=== PATIENT | female | born 1950 | race Caucasian/White ===

== ENCOUNTER 2017-06-21 16:16 | Emergency (ER) | payer MEDICARE, BC ==
[~2017-06-21] VITALS: Ht 170.2 cm; Wt 100.0 kg
[~2017-06-21 16:16] MED LIST: AMERGE1 MG PO; EFFEXOR 75M75 MG/TAB PO; LEVSIN0.125 M1 PO; NORVASC 5MG5 MG/TAB PO; PRILOSEC 20MG20 MG PO; VYTORIN 10 MG-21 TAB PO; [UNRECOGNIZED DRUG - OTHER]
[2017-06-21 16:18] VITALS: TEMP 97.6
[2017-06-21] MEDS ORDERED: PREDNISONE20 MG PO (17:18)
[2017-06-21 18:00] VITALS: BP 152/91; PULSE 80
== END 2017-06-21 18:00 | disposition home or self-care (01) ==
LOC: COL.ER 16:16
DX: T39.4X5A Adverse effect of antirheumatics, not elsewhere classified, initial encounter (principal); I10 Essential (primary) hypertension
CPT/HCPCS: J2930

== ENCOUNTER → 2017-10-26 | Outpatient (CLI) | payer MEDICARE, BC ==
[~2017-10-26] MED LIST changes: +PREDNISONE20 MG PO
== END ==
LOC: MC.RAD 13:46
DX: Z12.31 Encounter for screening mammogram for malignant neoplasm of breast (principal); Z98.890 Other specified postprocedural states

== ENCOUNTER → 2018-12-12 | Outpatient (CLI) | payer MEDICARE, BC | LOC: MC.RAD 13:16 | DX: N60.32 Fibrosclerosis of left breast (principal); N64.89 Other specified disorders of breast; Z85.3 Personal history of malignant neoplasm of breast; Z98.890 Other specified postprocedural states | CPT/HCPCS: G0279 ==

== ENCOUNTER 2019-05-01 12:47 | Outpatient (CLI) | payer MEDICARE, BC ==
[~2019-05-01] VITALS: Ht 170.2 cm; Wt 76.9 kg
[2019-05-01 13:30] VITALS: BP 148/72; PULSE 66; TEMP 98.4
== END 2019-05-01 14:10 | disposition home or self-care (01) ==
LOC: EUO 12:47
DX: M81.0 Age-related osteoporosis without current pathological fracture (principal)
CPT/HCPCS: J3489

== ENCOUNTER → 2019-07-25 | Outpatient (CLI) | payer MEDICARE, BC | LOC: COL.RAD 13:53 | DX: M79.645 Pain in left finger(s) (principal) | CPT/HCPCS: J3301; Q9967 ==

== ENCOUNTER → 2020-02-12 | Outpatient (CLI) | payer MEDICARE, BC | LOC: MC.RAD 02-04 11:15 | DX: Z12.31 Encounter for screening mammogram for malignant neoplasm of breast (principal); Z98.890 Other specified postprocedural states; Z98.82 Breast implant status; Z92.3 Personal history of irradiation ==

== ENCOUNTER 2023-04-07 12:40 | Outpatient (CLI) | payer MEDICARE, BC ==
[~2023-04-07] VITALS: Ht 170.2 cm; Wt 102.0 kg
[~2023-04-07 12:40] MED LIST changes: +EPIPEN 2-PAK1 MG/ML IM
[2023-04-07 13:11] LABS: BASO # 0.1 K/mm3 (0.0-0.2); BASO % 0.7 % (0.0-2.0); EOS # 0.2 K/mm3 (0.0-0.7); EOS % 3.1 % (0.0-4.0); GRAN # 4.4 K/mm3 (1.4-6.5); GRAN % 64.2 % (42.2-75.2); HEMATOCRIT 40.2 % (37.0-47.0); HEMOGLOBIN 13.9 g/dl (12.5-16.0); LYMPH # 1.4 K/mm3 (1.2-3.4); MEAN CELL VOLUME 87 fl (80.0-100.0); MEAN CORPUSCULAR HEMOGLOBIN 30 pg (27-31); MEAN CORPUSCULAR HGB CONC 35 g/dl (33.0-37.0); MONO # 0.7 K/mm3 (0.1-0.6); MONO % 10.6 % (1.7-9.3); PLATELET COUNT 220 K/mm3 (130-400); RED BLOOD COUNT 4.64 M/mm3 (4.10-5.30); REDCELL DISTRIBUTION WIDTH-CV 12.7 % (11.5-14.5)
[2023-04-07 13:17] VITALS: BP 135/88; PULSE 65; TEMP 98.1
[2023-04-07 13:27] LABS: ALBUMIN 3.6 gm/dL (3.4-4.8); BILIRUBIN,TOTAL 0.8 mg/dL (0.2-1.2); CALCIUM 9.3 mg/dL (8.4-10.2); CREATININE, serum 0.87 mg/dL (0.57-1.11); POTASSIUM 3.5 mmol/L (3.5-4.5); TOTAL PROTEIN 6.3 gm/dL (6.2-8.1)
[2023-04-07] MEDS ORDERED: COREG 6.256.25 MG/TA PO (13:33)
[2023-04-07] MEDS ORDERED: LEXAPRO 10MG10 MG PO (13:34)
[2023-04-07] MEDS ORDERED: CRESTOR5 MG PO (13:34)
[2023-04-07] MEDS ORDERED: VENTOLIN0.09 MG IH (13:35)
[2023-04-07] MEDS ORDERED: IMODIUM 2MG CAPS2 MG PO (13:36)
[2023-04-07] MEDS ORDERED: VESICARE10 MG PO (13:36)
[2023-04-07] MEDS ORDERED: AMERGE1 MG PO (13:37)
[2023-04-07] MEDS ORDERED: EPIPEN 2-PAK1 MG/ML IM (13:37)
[2023-04-07] MEDS ORDERED: ENTYVIO IV (13:39)
[2023-04-07] MEDS ORDERED: ASPIRIN E.C. 8181 MG PO (13:44)
[2023-04-07] MEDS ORDERED: TUMS500 MG PO (13:45)
[2023-04-07] MEDS ORDERED: ASPI325T6 PO (13:45)
[2023-04-07] MEDS ORDERED: COMPLETE MULTI1 TAB PO (13:45)
[2023-04-07] MEDS ORDERED: MASON NATURAL2000 IU PO (13:47)
[2023-04-07] MEDS ORDERED: [UNRECOGNIZED DRUG - CODE] SL (13:47)
[2023-04-07 13:55] VITALS: BP 154/90; PULSE 63
[2023-04-07 14:15] VITALS: BP 143/76; PULSE 63
[2023-04-07 14:29] VITALS: BP 146/87; PULSE 63
[2023-04-07 14:52] VITALS: BP 129/82; PULSE 72
--- NOTE | 2023-04-07 14:59 | NUR ---
Pt tolerated infusion and observation period without issue. IV DC'd, site wrapped with coban. Pt escorted out to elevator, gait steady. Free of complaints at discharge.
== END 2023-04-07 15:00 | disposition home or self-care (01) ==
LOC: EUO 12:40
PROVIDERS: Internal Medicine Gastroenterology
DX: K50.00 Crohn's disease of small intestine without complications (principal)
CPT/HCPCS: J1200; J2930; J3380; J7050

== ENCOUNTER → 2023-05-19 | Outpatient (CLI) | payer MEDICARE, BC ==
[~2023-05-19] MED LIST changes: +ASPI325T6 PO; +ASPIRIN E.C. 8181 MG PO; +COMPLETE MULTI1 TAB PO; +COREG 6.256.25 MG/TA PO; +CRESTOR5 MG PO; +ENTYVIO IV; +IMODIUM 2MG CAPS2 MG PO; +LEXAPRO 10MG10 MG PO; +MASON NATURAL2000 IU PO; +TUMS500 MG PO; +VENTOLIN0.09 MG IH; +VESICARE10 MG PO; +[UNRECOGNIZED DRUG - CODE] SL
== END ==
LOC: CANPRECLI → EUO 12:00
DX: K50.00 Crohn's disease of small intestine without complications (principal)
CPT/HCPCS: J3380

== ENCOUNTER 2023-10-07 12:13 | Emergency (ER) | payer MEDICARE, BC ==
[~2023-10-07] VITALS: Ht 170.2 cm; Wt 100.0 kg
[2023-10-07 12:20] VITALS: TEMP 98
[2023-10-07] MEDS ORDERED: Ketorolac 15 MG/ML VIAL IV ONE (12:45)
[2023-10-07 13:31] LABS: ALANINE AMINOTRANSFERASE 20 U/L (0-55); ALBUMIN 3.5 g/dL (3.4-4.8); ALKALINE PHOSPHATASE 93 U/L (40-150); ANION GAP 10 mmol/L (7-16); AST,SGOT 19 U/L (5-34); BILIRUBIN,TOTAL 0.9 mg/dL (0.2-1.2); BLOOD UREA NITROGEN 12 mg/dL (10-20); CALCIUM 9.7 mg/dL (8.4-10.2); CHLORIDE 104 mEq/L (98-107); CREATININE, serum 0.73 mg/dL (0.57-1.11); GLUCOSE 92 mg/dL (70-99); POTASSIUM 3.9 mEq/L (3.5-4.5); SODIUM 135 mEq/L (136-145); TOTAL PROTEIN 6.4 g/dl (6.2-8.1)
[2023-10-07 14:12] LABS: BASO % 0.5 % (0.0-2.0); EOS # 0.1 K/mm3 (0.0-0.7); EOS % 2.3 % (0.0-4.0); GRAN # 3.6 K/mm3 (1.4-6.5); GRAN % 64.2 % (42.2-75.2); HEMATOCRIT 41.1 % (37.0-47.0); HEMOGLOBIN 13.9 g/dl (12.5-16.0); LYMPH # 1.2 K/mm3 (1.2-3.4); LYMPH % 21.6 % (20.0-51.0); MEAN CELL VOLUME 87 fl (80.0-100.0); MEAN CORPUSCULAR HEMOGLOBIN 29 pg (27-31); MEAN CORPUSCULAR HGB CONC 34 g/dl (33.0-37.0); MEAN PLATELET VOLUME 9.4 fl (7.4-10.4); MONO # 0.6 K/mm3 (0.1-0.6); PLATELET COUNT 237 K/mm3 (130-400); RED BLOOD COUNT 4.72 M/mm3 (4.10-5.30); REDCELL DISTRIBUTION WIDTH-CV 12.9 % (11.5-14.5); TROPONIN-I < 0.010 ng/mL (0.00-0.033)
[2023-10-07] MEDS ORDERED: Acetaminophen 500 MG TAB PO ONE (14:15)
[2023-10-07 15:08] VITALS: BP 162/92; PULSE 64
== END 2023-10-07 15:08 | disposition home or self-care (01) ==
LOC: COL.ER 12:13
PROVIDERS: Emergency Medicine
DX: R07.89 Other chest pain (principal); I10 Essential (primary) hypertension; M25.512 Pain in left shoulder; Z91.040 Latex allergy status
CPT/HCPCS: J1885

== ENCOUNTER → 2023-12-27 | Outpatient (CLI) | payer MEDICARE, BC | LOC: MC.RAD 10:47 | DX: Z12.31 Encounter for screening mammogram for malignant neoplasm of breast (principal) ==